=== PATIENT | male | born 1985 | race Two or more races ===

== ENCOUNTER 2017-10-23 11:28 | Inpatient (IN) | payer OTHER ==
[~2017-10-23] VITALS: Ht 175.3 cm; Wt 70.3 kg
[2017-10-23] MEDS ORDERED: ZOLOFT50 MG (11:44)
== END 2017-10-24 16:58 | disposition home or self-care (01) | DRG 444 ==
LOC: ER 11:28 → MEDI 23:14
PROC: BW40ZZZ Ultrasonography of Abdomen (ICD-10-PCS; principal; 2017-10-23)
DX: K81.0 Acute cholecystitis (principal); K85.80 Other acute pancreatitis without necrosis or infection; F41.8 Other specified anxiety disorders; K52.89 Other specified noninfective gastroenteritis and colitis